=== PATIENT | female | born 1940 | race Caucasian/White ===

== ENCOUNTER 2018-12-08 14:29 | Observation (INO) ==
--- NOTE | 2018-12-08 14:53 | Emergency Department Note ---
Disposition Clinical Impression: Dizziness, Heart murmur, Elevated troponin Disposition: Admitted As Inpatient Condition: Fair General Adult HPI - General Chief complaint: ED Dizziness Stated complaint: Dizziness Time Seen by Provider: 12/08/18 14:30 Source: patient Limitations: no limitations Nursing Notes Reviewed: Yes Vital Signs Reviewed: Yes - History of Present Illness HPI Narrative: Patient arrives with daughter for evaluation of dizziness which she describes as lightheaded worse with changing position as well as trying to get up. Patient states that she is unable to quantify whether she feels like she is going to pass out she has never passed out before. Patient had not been feeling well since her last visit or she was diagnosed with diverticulitis. Patient was placed on antibiotics overall started to improve. His followed up with gastroenterology and placed on Bentyl. Overall this has significantly helped her abdominal pain and she is not having any current abdominal pain. Abdominal pain is intermittent and crampy in relieved with bowel movement movements flatus. Patient has been previously diagnosed with a heart murmur. Patient has not had any further workup other than been told she had 1. The patient does have a previous history of cardiac bypass approximately 15 years ago. Patient with out any recent cardiac evaluation. Will undergo further evaluation for lightheadedness, near syncope as well as possible underlying dehydration or infection. - Related Data Home Medications Medication Instructions Recorded Confirmed Folic Acid 1 mg PO DAILY 10/23/18 12/08/18 Hydralazine HCl 100 mg PO BID 10/23/18 12/08/18 Levothyroxine Sodium [Levoxyl] 50 mcg PO QAM 10/23/18 12/08/18 Lisinopril [Zestril] 10 mg PO QPM 10/23/18 12/08/18 Metoprolol Tartrate [Lopressor] 25 mg PO BID 10/23/18 12/08/18 Rosuvastatin Calcium [Crestor] 10 mg PO HS 10/23/18 12/08/18 amLODIPine [Norvasc] 5 mg PO DAILY 10/23/18 12/08/18 Multivit-Min/Iron/Folic/Lutein 1 each PO DAILY 10/24/18 12/08/18 [Multivitamin Women 50 Plus Tab] Allergies Allergy/AdvReac Type Severity Reaction Status Date / Time pioglitazone [From Actos] Allergy Mild Anaphylaxis Verified 12/08/18 17:25 Sulfa (Sulfonamide Allergy Mild Anaphylaxis Verified 12/08/18 17:25 Antibiotics) sulfamethoxazole Allergy Mild Anaphylaxis Verified 12/08/18 17:25 [From Bactrim] trimethoprim Allergy Mild Anaphylaxis Verified 12/08/18 17:25 dicyclomine [From Bentyl] AdvReac Intermediate Dizziness Verified 12/09/18 12:09 Review of Systems: CONSTITUTIONAL: Weakness and fatigue without fevers or chills HEENT: Eyes: No visual changes. Ears, Nose, Throat: No hearing loss, difficulty talking or unable to swallow. SKIN: No rash or itching. CARDIOVASCULAR: No chest pain, chest pressure or chest discomfort. No palpitations or edema. RESPIRATORY: No shortness of breath, cough or sputum. GASTROINTESTINAL: No anorexia, nausea, vomiting or diarrhea. No abdominal pain or blood. GENITOURINARY: No burning on urination or hematuria. NEUROLOGICAL: No headache, dizziness, syncope, paralysis, ataxia, numbness or tingling in the extremities. No change in bowel or bladder control. MUSCULOSKELETAL: No muscle pain, back pain, joint pain or stiffness. Past Medical History - Past Medical History Medical history: Reports: hyperlipidemia, hypertension Surgical history: Reports: carotid endarterectomy, coronary bypass (CABG) Psychiatric history: Reports: no psych history - Social History Smoking Status: Former smoker Smokeless Tobacco Status: No Alcohol use: Reports: none Drug use: Reports: none Physical Exam General: Well appearing, nontoxic, no acute distress Head: Normocephalic Atraumatic Eyes: PERRL, EOMI ENT: Airway patent, no stridor Neck: supple, no meningismus Chest: Mild rales at the bases Cardiac: Systolic heart murmur at the right sternal border. Regular rhythm. Abdomen: soft, nontender, nondistended; no guarding, rebound, or tenderness to percussion Musculoskeletal: Calves symmetric, nontender. Skin: No rash, normal skin tone. Neuro: Alert and Oriented to person, place, and time; No obvious focal deficit. Course - Reevaluation(s) Reevaluation #1: Patient with mildly elevated troponin. Given no chest pain and kidney disease, repeat troponin recommended. Aspirin given. Patient's lightheadedness possibly associated with cardiac etiology. Patient be admitted for further cardiac evaluation. UTI culture pending. Patient without urinary complaints. - Consultations Consultation #1: Discussed with hospitalist. Patient accepted for admission. Consultation #2: Admitting hospitalist evaluated the patient and recommended discharge. I did not felt comfortable discharging patient. Told the hospitalist that he could discharged patient himself or we can do a repeat troponin. If the repeat troponin has not changed or decreases then I would be more comfortable. Repeat troponin was positive. Patient admitted for further management. Vital Signs Temperature 98.1 F 12/08/18 14:42 Pulse Rate 70 12/08/18 14:42 Respiratory Rate 16 12/08/18 14:42 Blood Pressure 186/66 12/08/18 14:42 O2 Sat by Pulse Oximetry 100 12/08/18 14:42 Temperature 98.0 F 12/09/18 11:22 Pulse Rate 63 12/09/18 11:22 Respiratory Rate 16 12/09/18 11:22 Blood Pressure 146/70 12/09/18 11:22 O2 Sat by Pulse Oximetry 99 12/09/18 11:22 Oxygen Delivery Oxygen Delivery Room Air Medical Decision Making - Medical Records Medical records reviewed: Yes I reviewed the patient's medical records. - Lab Data Lab results reviewed: Yes I reviewed the patient's lab results. Result diagrams: 12/09/18 08:49 12/09/18 08:49 Lab Results 12/08/18 12/08/18 12/08/18 Range/Units 15:13 15:13 15:13 WBC 4.6 (4.3-11.1) K/mcL RBC 3.19 L (3.82-4.97) M/mcL Hgb 9.7 L (11.5-15.4) g/dL Hct 29.3 L (35.3-44.9) % MCV 91.8 (83.0-100.0) fL MCH 30.4 (28.0-33.3) pg MCHC 33.1 (31.6-35.5) g/dL RDW 15.2 H (11.5-14.5) % Plt Count 292 (140-400) K/mcL MPV 9.2 L (9.4-12.4) fL Immature Gran % 0.2 (0-4) % Seg Neutrophils % 56.9 % Lymphocytes % 25.7 % Monocytes % 13.9 % Eosinophils % 2.2 % Basophils % 1.1 % Neutrophils # 2.6 (1.6-8.9) K/mcL Lymphocytes # 1.2 (0.6-4.6) K/mcL Monocytes # 0.6 (0.0-1.3) K/mcL Eosinophils # 0.1 (0.0-0.6) K/mcL Basophils # 0.1 (0.0-0.2) K/mcL Sodium 139 (136-145) mEq/L Potassium 4.9 (3.5-5.1) mEq/L Chloride 106 (98-107) mEq/L Carbon Dioxide 23 (23-29) mEq/L BUN 28 H (8-23) mg/dL Creatinine 2.50 H (0.60-1.20) mg/dL Est GFR ( Amer) 22 L (> 60) Est GFR (Non-Af Amer) 19 L (> 60) BUN/Creatinine Ratio 11 (6-26) Glucose 135 H (70-105) mg/dL Calculated Osmolality 296 (280-300) Calcium 9.9 (8.6-10.3) mg/dL Total Bilirubin 0.3 (0.3-1.0) mg/dL AST 17 (13-39) Units/L ALT 7 (7-52) Units/L Alkaline Phosphatase 62 (34-104) Units/L Troponin I 0.04 H* (< 0.04) ng/mL B-Natriuretic Peptide 113 H (Less than 100) pg/mL Serum Total Protein 6.5 (6.4-8.9) g/dL Albumin 3.6 (3.5-5.7) g/dL Globulin 2.9 (2.4-3.5) g/dL Albumin/Globulin Ratio 1.2 (1.1-2.2) TSH 1.276 (0.340-5.600) mcIU/mL Ur Specimen Adequacy Urine Color (Yellow) Urine Clarity (Clear) Urine pH (5.0-8.0) pH Units Ur Specific [place] (1.010-1.025) Urine Protein (Neg-Trace) mg/dL Urine Glucose (UA) (Normal) mg/dL Urine Ketones (Negative) mg/dL Urine Blood (Negative) Urine Nitrite (Negative) Urine Bilirubin (Negative) Urine Urobilinogen (Normal) mg/dL Ur Leukocyte Esterase (Negative) Urine Microscopic WBC (0-3) per hpf Ur Squamous Epith Cells (None-Few) per lpf Ur Renal Epithelial Cell (None-Few) per hpf Urine Bacteria (None-Few) per hpf Hyaline Casts (None-Few) per lpf Ur Culture Indicated? (NO) 12/08/18 Range/Units 15:42 WBC (4.3-11.1) K/mcL RBC (3.82-4.97) M/mcL Hgb (11.5-15.4) g/dL Hct (35.3-44.9) % MCV (83.0-100.0) fL MCH (28.0-33.3) pg MCHC (31.6-35.5) g/dL RDW (11.5-14.5) % Plt Count (140-400) K/mcL MPV (9.4-12.4) fL Immature Gran % (0-4) % Seg Neutrophils % % Lymphocytes % % Monocytes % % Eosinophils % % Basophils % % Neutrophils # (1.6-8.9) K/mcL Lymphocytes # (0.6-4.6) K/mcL Monocytes # (0.0-1.3) K/mcL Eosinophils # (0.0-0.6) K/mcL Basophils # (0.0-0.2) K/mcL Sodium (136-145) mEq/L Potassium (3.5-5.1) mEq/L Chloride (98-107) mEq/L Carbon Dioxide (23-29) mEq/L BUN (8-23) mg/dL Creatinine (0.60-1.20) mg/dL Est GFR ( Amer) (> 60) Est GFR (Non-Af Amer) (> 60) BUN/Creatinine Ratio (6-26) Glucose (70-105) mg/dL Calculated Osmolality (280-300) Calcium (8.6-10.3) mg/dL Total Bilirubin (0.3-1.0) mg/dL AST (13-39) Units/L ALT (7-52) Units/L Alkaline Phosphatase (34-104) Units/L Troponin I (< 0.04) ng/mL B-Natriuretic Peptide (Less than 100) pg/mL Serum Total Protein (6.4-8.9) g/dL Albumin (3.5-5.7) g/dL Globulin (2.4-3.5) g/dL Albumin/Globulin Ratio (1.1-2.2) TSH (0.340-5.600) mcIU/mL Ur Specimen Adequacy See below A Urine Color Yellow (Yellow) Urine Clarity Cloudy A (Clear) Urine pH 6.5 (5.0-8.0) pH Units Ur Specific [place] 1.006 L (1.010-1.025) Urine Protein 30 H (Neg-Trace) mg/dL Urine Glucose (UA) Normal (Normal) mg/dL Urine Ketones Negative (Negative) mg/dL Urine Blood Negative (Negative) Urine Nitrite Negative (Negative) Urine Bilirubin Negative (Negative) Urine Urobilinogen Normal (Normal) mg/dL Ur Leukocyte Esterase Large H (Negative) Urine Microscopic WBC 5-15 H (0-3) per hpf Ur Squamous Epith Cells Many H (None-Few) per lpf Ur Renal Epithelial Cell Few (None-Few) per hpf Urine Bacteria Many H (None-Few) per hpf Hyaline Casts None Seen (None-Few) per lpf Ur Culture Indicated? YES A (NO) - Radiology Data Radiology results reviewed: Yes I reviewed the patient's radiology results. - EKG Data EKG #1 EKG attestation: Yes I reviewed and interpreted this EKG. EKG results narrative: EKG shows sinus rhythm with a heart rate of 65 FL 175 QRS [address] QTC [address] elevations. Patient has nonspecific ST depression in anterior leads of approximately 1/2 mm. EKG has only minor changes with this is compared to 10/23/18 where there was T-wave inversion. Patient has new T-wave flattening throughout the leads 3 and aVF.
[2018-12-08 15:31] LABS: Basophils # 0.1 K/mcL (0.0-0.2); Basophils % 1.1 %; Eosinophils # 0.1 K/mcL (0.0-0.6); Eosinophils % 2.2 %; Hematocrit 29.3 % (35.3-44.9); Hemoglobin 9.7 g/dL (11.5-15.4); Immature Granulocytes % 0.2 % (0-4); Lymphocytes # 1.2 K/mcL (0.6-4.6); Lymphocytes % 25.7 %; Mean Corpuscular HGB Conc 33.1 g/dL (31.6-35.5); Mean Corpuscular Hemoglobin 30.4 pg (28.0-33.3); Mean Corpuscular Volume 91.8 fL (83.0-100.0); Mean Platelet Volume 9.2 fL (9.4-12.4); Monocytes # 0.6 K/mcL (0.0-1.3); Monocytes % 13.9 %; Neutrophils # 2.6 K/mcL (1.6-8.9); Platelet Count 292 K/mcL (140-400); Red Blood Count 3.19 M/mcL (3.82-4.97); Red Cell Distribution Width 15.2 % (11.5-14.5); Segmented Neutrophils % 56.9 %
[2018-12-08 15:54] LABS: Albumin 3.6 g/dL (3.5-5.7); Albumin/Globulin Ratio 1.2 (1.1-2.2); Bilirubin,Total 0.3 mg/dL (0.3-1.0); Calcium 9.9 mg/dL (8.6-10.3); Globulin 2.9 g/dL (2.4-3.5); Potassium 4.9 mEq/L (3.5-5.1); Total Protein 6.5 g/dL (6.4-8.9); Troponin I 0.04 ng/mL (< 0.04)
[2018-12-08 16:06] LABS: Bilirubin,Urine Negative (Negative); Blood,Urine Negative (Negative); Clarity,Urine Cloudy (Clear); Color,Urine Yellow (Yellow); Glucose,Urine (UA) Normal (Normal); Ketones,Urine Negative (Negative); Leukocyte Esterase,Urine Large (Negative); Nitrite,Urine Negative (Negative); PH,Urine 6.5 pH Units (5.0-8.0); Protein,Urine 30 mg/dL (Neg-Trace); Specific Gravity,Urine 1.006 (1.010-1.025); Urobilinogen,Urine Normal (Normal)
[2018-12-08 16:18] LABS: Squamous Epithelial Cell,Urine Many per lpf (None-Few)
[2018-12-08 16:19] LABS: Bacteria,Urine Many per hpf (None-Few); Hyaline Casts,Urine None Seen per lpf (None-Few); Renal Epithelial Cells,Urine Few per hpf (None-Few)
[2018-12-08] MEDS ORDERED: Aspirin 81 MG TAB.CHEW PO STA (16:47)
--- NOTE | 2018-12-08 18:06 | Internal Medicine Consult Note ---
Date of Encounter: 12/08/18 Time of Encounter: 17:56 - Summary of Assessment and Plan Summary of Assessment and Plan: Monika Gamboa is an 78 F w hx CAD s/p CABG, HFpEF, HTN, CKD4, recent diverticu litis, who p/w dizziness following new start on Bentyl, which per Up[employer]Date has a 40% incidence of dizziness. Her symptoms per history are strongly suggestive of medication side effect. Re her murmur, she has a normal TTE 3 years ago, and thus progression to a symptomatic valvulopathy would be unlikely without obvious event like ME. Her SBP is elevated because she has not taken her amlodipine or hydralazine today due to her aforementioned dizziness. All of her labs are at her baseline in this pleasant 78 F who is oxygenating at 100% on RA and has no CP and therefore we can overlook a trop of 0.04 in context of her CKD4 and a CXR showing vascular congestion. At this time, I would suggest consideration for a delta trop and if stable or decreased, would discharge patient and have her follow up with both PCP for asymptomatic bacteriuria and GI for IBS and medication side effect. And obviously discontinue the Bentyl. Thank you for this consult. Call with any questions. Arthur Cevallos MD Internal Medicine - CN: HPI - Data of Consult Requesting Physician: Maria Teresa Baez MD - Consult Narrative History of present illness: Monika Gamboa is an 78 F w hx CAD s/p CABG, HFpEF, HTN, CKD4, recent diverticulitis, who p/w dizziness. After discharge from this facility in 10/2018 for diverticulitis, pt abided by high fiber diet and subsequently had bloating, and saw GI ENVIRONMENTAL GEOLOGIST in clinic two days ago and was started on Bentyl. She says she took 3 doses in the last three days, each of which caused her to feel sleepy for a bit as well as very dizzy whenever she tried to stand up. The patient states she thinks her medicine is causing her issues. She denies CP, palpitations, SOB, cough, changes in her chronic abd pain, no N/V/D, no dysuria, no change in leg swelling, and able to PO liquids but has been having trouble from solid foods causing cramping. She did not take any of her blood pressure pills this AM because she was feeling dizzy. Pt has never experienced dizziness like this before, and the episodes only occurred in the short time after taking each of the three doses of her pills. Review of records shows TTE in 2016 that shows HFpEF but no other significant abnormalities. She follows w Neph for CKD, GI for IBS/diverticulosis. In the ED, pt vitals HR 70, RR 16, SBP 170s, O2 99-100% on RA. No edema in legs but does have bibasilar crackles. Labs w Hb 10, Cr 2.5, Trop 0.04, BNP 113, and UA w WBC, LE, bacteria, and squams, which will result to culture. Past Med Surg Social Fam HX - Past Medical History Medical history: hyperlipidemia, hypertension, thyroid disease Additional medical history: hypothyroid Psychiatric history: no psych history - Past Surgical History Surgical History: carotid endarterectomy, coronary bypass (CABG) Additional surgical history: tonsillectomy - Social History Smoking Status: Former smoker Smokeless Tobacco Status: No Alcohol use: none Drug use: none - Family History Father Living Status: Hx Family Neurologic Disorders: Yes (parkinson's disease) Mother Living Status: Internal Medicine - CN: Meds Folic Acid 1 mg PO DAILY 10/23/18 [History] Hydralazine HCl 100 mg PO BID 10/23/18 [History] Levothyroxine Sodium [Levoxyl] 50 mcg PO QAM 10/23/18 [History] Lisinopril [Zestril] 10 mg PO QPM 10/23/18 [History] Metoprolol Tartrate [Lopressor] 25 mg PO BID 10/23/18 [History] Rosuvastatin Calcium [Crestor] 10 mg PO HS 10/23/18 [History] amLODIPine [Norvasc] 5 mg PO DAILY 10/23/18 [History] Multivit-Min/Iron/Folic/Lutein [Multivitamin Women 50 Plus Tab] 1 each PO DAILY 10/24/18 [History] Allergy/AdvReac Type Severity Reaction Status Date / Time pioglitazone [From Actos] Allergy Mild Anaphylaxis Verified 12/08/18 17:25 Sulfa (Sulfonamide Allergy Mild Anaphylaxis Verified 12/08/18 17:25 Antibiotics) sulfamethoxazole Allergy Mild Anaphylaxis Verified 12/08/18 17:25 [From Bactrim] trimethoprim Allergy Mild Anaphylaxis Verified 12/08/18 17:25 Hospitalist - CN: Exam - Constitutional Vitals: Temp Pulse Resp BP Pulse Ox 98.1 F 71 14 172/66 99 12/08/18 14:42 12/08/18 17:24 12/08/18 17:24 12/08/18 17:24 12/08/18 17:24 Exam: General: NAD, good eye contact, well appearing, elderly, pleasant Head: Atraumatic, normocephalic. Face symmetric Eyes: EOMI, sclerae anicteric ENT: Mucous membranes moist. Normal oral mucosa, wearing dentures. Trachea midline. Thoracic: No visible chest wall deformities. Does have bibasilar crackles but good aeration. Cardio: Normal S1 and S2, regular rate and rhythm, does have systolic murmur. No JVD Abdomen: Soft, nontender, nondistended. Bowel sounds present. No rebound Extremities: Warm, well perfused. DP pulses 2+ b/l. No edema Skin: Intact. No rashes, bruises, or ulcers Neuro: Awake, fully oriented. Good memory, concentration, attention. Speech fluent. CN II-XII grossly intact. Strength 5/5 in b/l UE and LE Internal Medicine - CN: Reslt - Labs CBC & Chem 7: 12/08/18 15:13 12/08/18 15:13 Labs: Short CBC 12/08/18 Range/Units 15:13 WBC 4.6 (4.3-11.1) K/mcL Hgb 9.7 L (11.5-15.4) g/dL Hct 29.3 L (35.3-44.9) % Plt Count 292 (140-400) K/mcL Neutrophils # 2.6 (1.6-8.9) K/mcL BMP 12/08/18 15:13 Sodium 139 Potassium 4.9 Chloride 106 Carbon Dioxide 23 BUN 28 H Creatinine 2.50 H Glucose 135 H Calcium 9.9 Cardiac Enzymes 12/08/18 Range/Units 15:13 Troponin I 0.04 H* (< 0.04) ng/mL Liver Function 12/08/18 Range/Units 15:13 Total Bilirubin 0.3 (0.3-1.0) mg/dL AST 17 (13-39) Units/L ALT 7 (7-52) Units/L Alkaline Phosphatase 62 (34-104) Units/L Albumin 3.6 (3.5-5.7) g/dL Urine 12/08/18 Range/Units 15:42 Urine Color Yellow (Yellow) Urine Clarity Cloudy A (Clear) Urine pH 6.5 (5.0-8.0) pH Units Ur Specific [place] 1.006 L (1.010-1.025) Urine Protein 30 H (Neg-Trace) mg/dL Urine Glucose (UA) Normal (Normal) mg/dL - Impressions Impressions Chest X-Ray 12/08/18 14:47 IMPRESSION: 1. No acute cardiopulmonary process. 2. Interstitial prominence potentially due to pulmonary vascular congestion and/or chronic changes. D/ / Murtaza Chavez MD / Murtaza Chavez MD Interpreting Provider: Murtaza Chavez MD Consult Discharge Plan - Plan Referrals: Lukasz Domínguez MD [Primary Care Provider] -
[2018-12-08 19:21] LABS: Thyroid Stimulating Hormone 1.276 mcIU/mL (0.340-5.600)
[2018-12-08] MEDS: hydrALAZINE 25 MG TABLET PO SCH (22:02)
--- NOTE | 2018-12-08 22:07 | Event Note ---
Date of Encounter: 12/08/18 Time of Encounter: 21:00 Ms. Gamboa is a 78 year old female with past medical history significant for CAD s/p CABG, HFpEF, hypertension, hyperlipidemia, renal disease, thyroid disease, and diverticulitis who was seen earlier today by my colleague after she had presented to ER for dizziness after starting Bentyl which is a new medication for her. Medication is documented to have a 40% incidence of dizziness. Her symptoms were strongly thought to be related to the medication side effect as her vitals were all stable besides elevated blood pressure after not taking home medications and labs were all at her baseline besides an initial elevated troponin of 0.04. Due to the patient having no complaints of chest pain, the elevated troponin was thought to be secondary to her chronic kidney disease and chest xray with vascular congestion. My colleague therefore suggested a delta troponin and discharge with PCP and GI follow up if stable or decreased. However, ER called with second troponin increasing to 0.05, patient continues to deny any current or recent chest pain or other cardiac symptoms. Patient currently denies any headache, dizziness, chest pain, shortness of breath, abdominal pain, nausea, bowel or bladder changes. General:Awake, alert, and oriented. Cardiovascular:Normal S1 and S2, chronic murmur noted. No JVD. Pulse regular. Lungs:Breath sounds decreased, no wheezes or crackles. Abdomen:Soft non tender no rigidity. Normoactive bowel sounds. Neurological:Normal cognition and motor skills. 1- Elevated troponin-In setting of chronic kidney disease and vascular congestion. Continuous cardiac monitoring, trend troponins, if any further changes in troponin or symptoms consider further workup. 2- Hypertension-Likely secondary to not taking home medication today, will restart home medications. 3- Dizziness-Currently resolved, likely secondary to new medication Bentyl which has been discontinued. 4- Abnormal chest xray-Pulmonary vascular congestion and or chronic changes on xray, no respiratory distress currently, continue to monitor. 5- Abnormal UA-UA in ER with large leukocyte esterase but possibly also contaminated specimen. Urine culture pending. Denies any urinary symptoms, no signs of infection.
--- NOTE | 2018-12-09 08:13 | Discharge Summary ---
- NOTES TO OUTPATIENT PROVIDER Notes to Outpatient Provider: Dizziness from Bentyl. TTE does show mild AoS. Orthostatic VS remarkable for drop upon standing, encouraged PO hydration and being careful. Date of Encounter: 12/09/18 Time of Encounter: 08:11 Hospital course: Dear Doctors, I recently had the opportunity to care for this patient during their recent hospital stay at [facility]. Monika Gamboa is an 78 F w hx CAD s/p CABG, HFpEF, HTN, CKD4, recent diverticulitis, who presented at time of admission with dizziness. Symptoms started two days prior after taking her first dose of new medication Bentyl, prescribed for bloating/cramping abd pain following several high fiber dietary changes she made following her recent bout of diverticulitis. She took three doses, and after each one she felt markedly dizzy, worse upon standing. In the ED, vitals and labs all unremarkable. Stable heart murmur for which TTE 3 yrs prior was normal. CXR showing pulmonary vascular fullness, although exam without any peripheral edema and pt satting 99% on room air. Troponin resulted at 0.05, and despite known history renal disease and no chest pain, pt was admitted, despite Medicine consult stating pt without acute abnormality other than medication side effect and could follow up outpatient should symptoms persist after stopping medication. In the hospital, pt asymptomatic. Orthostatic vital signs remarkable, and pt was encouraged to improve PO hydration and be careful when standing. I did check a TTE for patient because she was a bit confused as to why she was admitted, and this unsurprisingly shows only mild AoS and no other findings. Discharged in stable condition and can follow up with her PCP and GI teams. Dx: medication side effect Pertinent tests/consults: TTE w mild AoS Follow up: PCP 1 week Tests pending: none Med changes: stop Bentyl Mental status: awake, fully oriented It has been my pleasure participating in this patient's care. Please contact me with any questions or concerns regarding their hospital stay. Sincerely, Arthur Cevallos MD - Discharge Medications Prescriptions: Continued Metoprolol Tartrate [Lopressor] 25 mg PO BID amLODIPine [Norvasc] 5 mg PO DAILY Lisinopril [Zestril] 10 mg PO QPM Levothyroxine Sodium [Levoxyl] 50 mcg PO QAM Hydralazine HCl 100 mg PO BID Rosuvastatin Calcium [Crestor] 10 mg PO HS Folic Acid 1 mg PO DAILY Multivit-Min/Iron/Folic/Lutein [Multivitamin Women 50 Plus Tab] 1 each PO DAILY Home Medications: Folic Acid 1 mg PO DAILY 10/23/18 [History] Hydralazine HCl 100 mg PO BID 10/23/18 [History] Levothyroxine Sodium [Levoxyl] 50 mcg PO QAM 10/23/18 [History] Lisinopril [Zestril] 10 mg PO QPM 10/23/18 [History] Metoprolol Tartrate [Lopressor] 25 mg PO BID 10/23/18 [History] Rosuvastatin Calcium [Crestor] 10 mg PO HS 10/23/18 [History] amLODIPine [Norvasc] 5 mg PO DAILY 10/23/18 [History] Multivit-Min/Iron/Folic/Lutein [Multivitamin Women 50 Plus Tab] 1 each PO DAILY 10/24/18 [History] Allergies/Adverse Reactions: Allergy/AdvReac Type Severity Reaction Status Date / Time pioglitazone [From Actos] Allergy Mild Anaphylaxis Verified 12/08/18 17:25 Sulfa (Sulfonamide Allergy Mild Anaphylaxis Verified 12/08/18 17:25 Antibiotics) sulfamethoxazole Allergy Mild Anaphylaxis Verified 12/08/18 17:25 [From Bactrim] trimethoprim Allergy Mild Anaphylaxis Verified 12/08/18 17:25 Date of admission: 12/08/18 17:25 Primary care physician: Lukasz Domínguez MD - Constitutional Vitals: Temp Pulse Resp BP Pulse Ox 98.4 F 70 16 130/62 95 12/09/18 07:17 12/09/18 07:17 12/09/18 07:17 12/09/18 07:17 12/09/18 07:17 Exam: General: NAD, good eye contact, well appearing, elderly, pleasant Thoracic: Trace bibasilar crackles, good aeration. Cardio: Normal S1 and S2, regular rate and rhythm, does have systolic murmur. No JVD Abdomen: Soft, nontender Extremities: Warm, well perfused. DP pulses 2+ b/l. No edema Skin: Intact. No rashes, bruises, or ulcers Neuro: Awake, fully oriented. Good memory, concentration, attention. Speech fluent. - Patient Status Disposition: Home, Self-Care Condition: Fair Functional capacity at discharge: independent ambulation Overall status at discharge: patient is back to baseline - Discharge Instructions Follow Up With: Lukasz Domínguez MD [Primary Care Provider] - (follow up appointment has been requested. Office will call with date and time of appointment. ) Murtaza Petersen CNP [Advanced Practice Nurse] - (Appointment has been requested. Office will call with date and time of appointment. ) - Diet and Activity Activity: resume usual activities as tolerated Diet: advance to your usual diet - VTE Documentation of Mechanical Device: Intermittent pneumatic compression device
[2018-12-09] MEDS ORDERED: Multivit/Ca/Min/Fe/FA 1 TAB TABLET PO SCH (09:00)
[2018-12-09] MEDS ORDERED: amLODIPine 5 MG TABLET PO SCH (09:00)
[2018-12-09] MEDS ORDERED: Folic Acid 1 MG TABLET PO SCH (09:00)
[2018-12-09 09:05] LABS: Basophils # 0.1 K/mcL (0.0-0.2); Basophils % 0.9 %; Eosinophils # 0.1 K/mcL (0.0-0.6); Eosinophils % 2.2 %; Hematocrit 29.8 % (35.3-44.9); Hemoglobin 9.5 g/dL (11.5-15.4); Immature Granulocytes % 0.3 % (0-4); Lymphocytes # 1.4 K/mcL (0.6-4.6); Lymphocytes % 21.3 %; Mean Corpuscular HGB Conc 31.9 g/dL (31.6-35.5); Mean Corpuscular Hemoglobin 29.7 pg (28.0-33.3); Mean Corpuscular Volume 93.1 fL (83.0-100.0); Mean Platelet Volume 9.4 fL (9.4-12.4); Monocytes # 0.8 K/mcL (0.0-1.3); Monocytes % 11.9 %; Neutrophils # 4.1 K/mcL (1.6-8.9); Platelet Count 262 K/mcL (140-400); Red Cell Distribution Width 15.5 % (11.5-14.5); Segmented Neutrophils % 63.4 %
[2018-12-09 09:21] LABS: Calcium 9.5 mg/dL (8.6-10.3); Potassium 4.8 mEq/L (3.5-5.1)
[2018-12-09] MEDS ORDERED: 0.9 % Sodium Chloride 250 ML IVC ONE (10:13)
[2018-12-09] MEDS: hydrALAZINE 25 MG TABLET PO SCH (10:19)
--- NOTE | 2018-12-09 11:22 | Electrocardiograph Report ---
[place] [id number] Test Date: 2018-12-08 Pat Name: Monika Gamboa Department: [id number] Room: 3B13 Gender: F Computer Hardware Designer: : 1940 Requested By: Remy Branch Order Number: [id number] Reading MD: Nila Meredith Measurements Intervals [place] Rate: 65 P: 63 TN: 175 QRS: 43 QRSD: 114 T: 21 QT: 426 QTc: 443 Interpretive Statements Sinus rhythm Incomplete right bundle branch block Electronically Signed On 12-09-2018 11:21:26 EDT by Nila Meredith
[2018-12-09 11:25] VITALS: BP 146/70
== END 2018-12-09 12:27 | disposition home or self-care (01) ==
LOC: EMEROOARM 14:29 → 3BNU 14:29
PROVIDERS: ADMIT Internal Medicine; ATTEND Internal Medicine

== ENCOUNTER 2020-05-05 10:38 | Observation (INO) ==
[2020-05-05 11:39] LABS: Basophils # 0.1 K/mcL (0.0-0.2); Basophils % 1.1 %; Eosinophils # 0.2 K/mcL (0.0-0.6); Eosinophils % 3.1 %; Hemoglobin 11.3 g/dL (11.5-15.4); Immature Granulocytes % 0.4 % (0-4); Lymphocytes % 35.6 %; Mean Corpuscular HGB Conc 34.2 g/dL (31.6-35.5); Mean Corpuscular Hemoglobin 33.2 pg (28.0-33.3); Mean Corpuscular Volume 97.1 fL (83.0-100.0); Mean Platelet Volume 9.6 fL (9.4-12.4); Monocytes # 0.6 K/mcL (0.0-1.3); Monocytes % 11.2 %; Neutrophils # 2.7 K/mcL (1.6-8.9); Platelet Count 223 K/mcL (140-400); Red Cell Distribution Width 14.6 % (11.5-14.5); Segmented Neutrophils % 48.6 %; White Blood Count 5.5 K/mcL (4.3-11.1)
[2020-05-05 11:53] LABS: INR 0.8; Prothrombin Time 9.6 Seconds (9.4-12.1)
[2020-05-05 11:55] LABS: Activated Partial Thrombo Time 27.1 Seconds (26.0-36.0)
[2020-05-05 11:56] LABS: Potassium 4.2 mEq/L (3.5-5.1)
[2020-05-05 11:58] LABS: Troponin I 0.03 ng/mL (< 0.04)
[2020-05-05 12:09] LABS: Thyroid Stimulating Hormone 4.82 mcIU/mL (0.340-5.600)
[2020-05-05] MEDS ORDERED: *HR* Metoprolol 5 MG/5 ML VIAL IVP PRN (14:41)
[2020-05-05] MEDS ORDERED: Ondansetron 4 MG/2 ML VIAL IVP PRN (14:43)
[2020-05-05] MEDS ORDERED: Naloxone 0.4 MG/ML INJ IVP PRN (14:43)
[2020-05-05] MEDS ORDERED: Perflutren Lipid Microsphere 1.3 ML in 0.9 % Sodium Chloride 8.7 ML IVP PRN (14:45)
[2020-05-05] MEDS ORDERED: *HR* Heparin 5,000 UNIT/ML VIAL IVP ONE (15:20)
[2020-05-05] MEDS ORDERED: *HR* Heparin 5,000 UNIT/ML VIAL IVP PRN ×2 (15:20)
[2020-05-05] MEDS: Heparin 25,000UNIT/250ML 1/2NS 25,000 UNIT/250 ML IV.SOLN IVC SCH (15:40)
[2020-05-05] MEDS ORDERED: 0.9 % Sodium Chloride 1,000 ML IVC SCH ×2 (15:45)
[2020-05-05] MEDS: Metoprolol XL (24 HR) Succ 50 MG TAB.ER.24H PO SCH ×2 (15:49→21:07)
[2020-05-05] MEDS: amLODIPine 5 MG TABLET PO SCH (15:49)
[2020-05-05] MEDS: lisinopriL 10 MG TABLET PO SCH (17:36)
[2020-05-05] MEDS ORDERED: *HR* Labetalol 20 MG/4 ML SYRINGE IVP ONE (17:48)
[2020-05-05 22:02] LABS: Hematocrit 29.5 % (35.3-44.9); Hemoglobin 10.1 g/dL (11.5-15.4); Mean Corpuscular HGB Conc 34.2 g/dL (31.6-35.5); Mean Corpuscular Hemoglobin 33.6 pg (28.0-33.3); Mean Platelet Volume 9.4 fL (9.4-12.4); Platelet Count 200 K/mcL (140-400); Red Blood Count 3.01 M/mcL (3.82-4.97); White Blood Count 5.7 K/mcL (4.3-11.1)
[2020-05-06 06:43] LABS: Basophils % 0.8 %; Eosinophils # 0.2 K/mcL (0.0-0.6); Eosinophils % 3.6 %; Hematocrit 26.4 % (35.3-44.9); Hemoglobin 9.7 g/dL (11.5-15.4); Immature Granulocytes % 0.4 % (0-4); Lymphocytes # 1.8 K/mcL (0.6-4.6); Lymphocytes % 34.6 %; Mean Corpuscular HGB Conc 36.7 g/dL (31.6-35.5); Mean Corpuscular Hemoglobin 36.6 pg (28.0-33.3); Mean Corpuscular Volume 99.6 fL (83.0-100.0); Monocytes # 0.6 K/mcL (0.0-1.3); Monocytes % 10.5 %; Neutrophils # 2.6 K/mcL (1.6-8.9); Platelet Count 205 K/mcL (140-400); Red Blood Count 2.65 M/mcL (3.82-4.97); Red Cell Distribution Width 14.6 % (11.5-14.5); Segmented Neutrophils % 50.1 %; White Blood Count 5.3 K/mcL (4.3-11.1)
[2020-05-06 07:15] LABS: Troponin I 0.05 ng/mL (< 0.04)
[2020-05-06 07:22] LABS: Calcium 9.4 mg/dL (8.6-10.3); Magnesium 1.6 mg/dL (1.6-2.6); Phosphorous 3.2 mg/dL (2.7-4.5); Potassium 4.8 mEq/L (3.5-5.1)
[2020-05-06] MEDS: amLODIPine 5 MG TABLET PO SCH (07:47)
[2020-05-06] MEDS: Metoprolol XL (24 HR) Succ 50 MG TAB.ER.24H PO SCH ×2 (07:47→20:41)
[2020-05-06] MEDS: Heparin 25,000UNIT/250ML 1/2NS 25,000 UNIT/250 ML IV.SOLN IVC SCH (13:05)
[2020-05-06] MEDS: Aspirin Enteric Coated 81 MG Tablet PO SCH (13:07)
[2020-05-06] MEDS: lisinopriL 10 MG TABLET PO SCH (17:52)
[2020-05-07] MEDS ORDERED: Regadenoson 0.4 MG/5 ML SYRINGE IVP ONE (05:56)
[2020-05-07 06:04] LABS: Basophils # 0.1 K/mcL (0.0-0.2); Basophils % 1.5 %; Eosinophils # 0.2 K/mcL (0.0-0.6); Eosinophils % 4.7 %; Hemoglobin 9.6 g/dL (11.5-15.4); Immature Granulocytes % 0.2 % (0-4); Lymphocytes # 1.9 K/mcL (0.6-4.6); Lymphocytes % 40.6 %; Mean Corpuscular HGB Conc 35.6 g/dL (31.6-35.5); Mean Corpuscular Hemoglobin 36.1 pg (28.0-33.3); Mean Corpuscular Volume 101.5 fL (83.0-100.0); Mean Platelet Volume 10.1 fL (9.4-12.4); Monocytes # 0.6 K/mcL (0.0-1.3); Monocytes % 12.3 %; Neutrophils # 1.9 K/mcL (1.6-8.9); Platelet Count 192 K/mcL (140-400); Red Blood Count 2.66 M/mcL (3.82-4.97); Red Cell Distribution Width 15.1 % (11.5-14.5); Segmented Neutrophils % 40.7 %; White Blood Count 4.7 K/mcL (4.3-11.1)
[2020-05-07 06:24] LABS: Calcium 9.1 mg/dL (8.6-10.3); Magnesium 1.7 mg/dL (1.6-2.6); Phosphorous 3.3 mg/dL (2.7-4.5)
[2020-05-07] MEDS: amLODIPine 5 MG TABLET PO SCH (09:01)
[2020-05-07] MEDS: Aspirin Enteric Coated 81 MG Tablet PO SCH (09:01)
[2020-05-07] MEDS: Metoprolol XL (24 HR) Succ 50 MG TAB.ER.24H PO SCH (09:01)
[2020-05-07] MEDS ORDERED: Acetaminophen 325 MG TABLET PO PRN (09:54)
[2020-05-07 15:51] VITALS: BP 166/91
[2020-05-07] MEDS ORDERED: Apixaban 5 MG TABLET PO SCH (21:00)
== END 2020-05-07 16:40 | disposition home or self-care (01) ==
LOC: EMEROOARM 10:38 → CDU 10:38 → 3BNU 18:56
PROVIDERS: ADMIT Pharmacist; ATTEND Pharmacist

== ENCOUNTER 2020-07-02 13:25 | Observation (INO) ==
[2020-07-02] MEDS ORDERED: 0.9 % Sodium Chloride 1,000 ML IVC ONE (13:44)
[2020-07-02 14:40] LABS: Basophils % 0.6 %; Eosinophils # 0.1 K/mcL (0.0-0.6); Eosinophils % 2.1 %; Hematocrit 19.2 % (35.3-44.9); Hemoglobin 6.6 g/dL (11.5-15.4); Immature Granulocytes % 0.4 % (0-4); Lymphocytes # 1.2 K/mcL (0.6-4.6); Lymphocytes % 23.3 %; Mean Corpuscular HGB Conc 34.4 g/dL (31.6-35.5); Mean Corpuscular Hemoglobin 36.5 pg (28.0-33.3); Mean Corpuscular Volume 106.1 fL (83.0-100.0); Mean Platelet Volume 9.4 fL (9.4-12.4); Monocytes # 0.5 K/mcL (0.0-1.3); Monocytes % 9.5 %; Neutrophils # 3.4 K/mcL (1.6-8.9); Nucleated Red Blood Cells 0.4 /100 WBC (0); Platelet Count 252 K/mcL (140-400); Red Blood Count 1.81 M/mcL (3.82-4.97); Red Cell Distribution Width 17.2 % (11.5-14.5); Segmented Neutrophils % 64.1 %; White Blood Count 5.3 K/mcL (4.3-11.1)
[2020-07-02 14:42] LABS: VBG HCO3 21 mEq/L (21-27); VBG PCO2 45 mmHg (41-51); VBG PH 7.27 pH Units (7.32-7.42); VBG PO2 43 mmHg (25-50)
[2020-07-02 14:48] LABS: INR 2.4; Prothrombin Time 26.7 Seconds (9.4-12.1)
[2020-07-02 14:51] LABS: Activated Partial Thrombo Time 45.8 Seconds (26.0-36.0)
[2020-07-02 15:06] LABS: Alanine Aminotransferase 9 Units/L (7-52); Albumin 3.8 g/dL (3.5-5.7); Albumin/Globulin Ratio 1.3 (1.1-2.2); Alkaline Phosphatase 73 Units/L (34-104); Aspartate Amino Transferase 16 Units/L (13-39); BUN/Creatinine Ratio 16 (6-26); Bilirubin,Indirect 0.2 mg/dL (0.0-1.0); Bilirubin,Total 0.2 mg/dL (0.3-1.0); Blood Urea Nitrogen 51 mg/dL (8-23); Calcium 9.5 mg/dL (8.6-10.3); Carbon Dioxide 19 mEq/L (23-29); Chloride 114 mEq/L (98-107); Globulin 2.9 g/dL (2.4-3.5); Glucose 116 mg/dL (70-105); Magnesium 1.9 mg/dL (1.6-2.6); Osmolality,Calculated 303 (280-300); Phosphorous 2.9 mg/dL (2.7-4.5); Potassium 5.4 mEq/L (3.5-5.1); Sodium 139 mEq/L (136-145); Total Protein 6.7 g/dL (6.4-8.9); Troponin I < 0.03 ng/mL (< 0.04); eGFR For African Americans 17 (> 60); eGFR For Non-African Americans 14 (> 60)
[2020-07-02 15:36] LABS: Adenovirus Not Detected (Not Detect); Bordetella Pertussis Not Detected (Not Detect); Chlamydophila pneumoniae Not Detected (Not Detect); Coronavirus 229E Not Detected (Not Detect); Coronavirus HKU1 Not Detected (Not Detect); Coronavirus NL63 Not Detected (Not Detect); Coronavirus OC43 Not Detected (Not Detect); Human Metapneumovirus Not Detected (Not Detect); Human Rhinovirus/Enterovirus Not Detected (Not Detect); Influenza A Subtype 2009 H1 Not Detected (Not Detect); Influenza B Not Detected (Not Detect); Mycoplasma pneumoniae Not Detected (Not Detect); Parainfluenza Virus 1 Not Detected (Not Detect); Parainfluenza Virus 2 Not Detected (Not Detect); Parainfluenza Virus 3 Not Detected (Not Detect); Parainfluenza Virus 4 Not Detected (Not Detect); Respiratory Syncytial Virus Not Detected (Not Detect); SARS-CoV-2 Not Detected (Not Detect)
[2020-07-02] MEDS ORDERED: 0.9 % Sodium Chloride 250 ML ONE (16:40)
[2020-07-02] MEDS ORDERED: Ondansetron 4 MG/2 ML VIAL IVP PRN (16:48)
[2020-07-02] MEDS ORDERED: Naloxone 0.4 MG/ML INJ IVP PRN (16:48)
[2020-07-02] MEDS ORDERED: *HR* Phytonadione 5 MG TABLET PO ONE (16:53)
[2020-07-02 17:18] LABS: Bacteria,Urine Few per hpf (None-Few); Bilirubin,Urine Negative (Negative); Blood,Urine Trace (Negative); Clarity,Urine Clear (Clear); Color,Urine Light-Yellow (Yellow); Glucose,Urine (UA) Normal (Normal); Ketones,Urine Negative (Negative); Leukocyte Esterase,Urine Negative (Negative); Mucus,Urine Few per lpf (None-Few); Nitrite,Urine Negative (Negative); Protein,Urine 50 mg/dL (Neg-Trace); RBC,Urine 0-3 per hpf (0-3); Specific Gravity,Urine 1.013 (1.010-1.025); Squamous Epithelial Cell,Urine Moderate per hpf (None-Few); Urobilinogen,Urine Normal (Normal); WBC,Urine 0-3 per hpf (0-3)
[2020-07-02 20:33] LABS: Hematocrit 21.8 % (35.3-44.9); Hemoglobin 8.1 g/dL (11.5-15.4)
[2020-07-02] MEDS: Metoprolol XL (24 HR) Succ 50 MG TAB.ER.24H PO SCH (21:04)
[2020-07-02] MEDS: Ringers Solution, Lactated 1,000 ML IVC SCH (21:04)
[2020-07-02] MEDS: Pantoprazole 40 MG VIAL IVP SCH (21:04)
[2020-07-03] MEDS: Pantoprazole 40 MG VIAL IVP SCH (05:07)
[2020-07-03] MEDS: Ringers Solution, Lactated 1,000 ML IVC SCH (05:10)
[2020-07-03 06:21] LABS: Basophils % 0.6 %; Eosinophils # 0.2 K/mcL (0.0-0.6); Eosinophils % 3.3 %; Hematocrit 21.4 % (35.3-44.9); Hemoglobin 7.4 g/dL (11.5-15.4); Immature Granulocytes % 0.2 % (0-4); Lymphocytes # 1.8 K/mcL (0.6-4.6); Lymphocytes % 34.2 %; Mean Corpuscular HGB Conc 34.6 g/dL (31.6-35.5); Mean Corpuscular Hemoglobin 34.7 pg (28.0-33.3); Mean Corpuscular Volume 100.5 fL (83.0-100.0); Mean Platelet Volume 9.4 fL (9.4-12.4); Monocytes # 0.6 K/mcL (0.0-1.3); Monocytes % 11.2 %; Neutrophils # 2.6 K/mcL (1.6-8.9); Nucleated Red Blood Cells 0.4 /100 WBC (0); Platelet Count 216 K/mcL (140-400); Red Blood Count 2.13 M/mcL (3.82-4.97); Red Cell Distribution Width 16.7 % (11.5-14.5); Segmented Neutrophils % 50.5 %; White Blood Count 5.2 K/mcL (4.3-11.1)
[2020-07-03 06:24] LABS: INR 1.7; Prothrombin Time 19.5 Seconds (9.4-12.1)
[2020-07-03 06:36] LABS: Calcium 9.2 mg/dL (8.6-10.3); Potassium 5.2 mEq/L (3.5-5.1)
[2020-07-03] MEDS ORDERED: Ipratropium/Albuterol Neb 3 ML IH PRN (07:46)
[2020-07-03] MEDS ORDERED: Multivit/Ca/Min/Fe/FA 1 TAB TABLET PO SCH (09:00)
[2020-07-03] MEDS ORDERED: Folic Acid 1 MG TABLET PO SCH (09:00)
[2020-07-03] MEDS ORDERED: *HR* FentaNYL (PF) 100 MCG/2 ML VIAL ONE (09:33)
[2020-07-03] MEDS ORDERED: *HR* Midazolam HCl 5 MG/5 ML VIAL IVP ONE ×2 (09:33→10:26)
[2020-07-03] MEDS: Metoprolol XL (24 HR) Succ 50 MG TAB.ER.24H PO SCH (09:36)
[2020-07-03] MEDS ORDERED: *HR* FentaNYL (PF) 100 MCG/2 ML VIAL IVP ONE (10:26)
[2020-07-03] MEDS ORDERED: 0.9 % Sodium Chloride 250 ML IVC SCH (11:30)
[2020-07-03 15:01] VITALS: BP 150/73
[2020-07-03 16:09] LABS: Hemoglobin 8.9 g/dL (11.5-15.4)
[2020-07-03] MEDS ORDERED: lisinopriL 10 MG TABLET PO SCH (18:00)
== END 2020-07-03 17:50 | disposition home or self-care (01) ==
LOC: EMEROOARM 13:25 → 3ANU 13:25
PROVIDERS: ADMIT Internal Medicine; ATTEND Internal Medicine
PROC: ENDOEBX (2020-07-03 10:00)